=== PATIENT | male | born 1940 | race Caucasian/White ===

== ENCOUNTER 2024-06-23 09:06 | Outpatient (CLI) | payer MEDICARE, SELFPAY | END 2024-06-23 09:07 | disposition home or self-care (01) | PROVIDERS: Visit Provider Urology | DX: N13.30 Unspecified hydronephrosis (principal); K42.9 Umbilical hernia without obstruction or gangrene; K40.20 Bilateral inguinal hernia, without obstruction or gangrene, not specified as recurrent; K44.9 Diaphragmatic hernia without obstruction or gangrene; C61 Malignant neoplasm of prostate | CPT/HCPCS: 78815; A9596 ==

== ENCOUNTER 2024-07-10 08:36 | Outpatient (CLI) | payer MEDICARE, SELFPAY ==
--- NOTE | ~2024-07-10 | DEXA_ITS ---
Bone Density Report Name: POLO WOOTEN (JERRY) Age: 84 Sex: Male Ethnicity: White Date of : 1940 Indication: screening for osteoporosis; cancer; rheumatoid arthritis; Referring Provider: SARABJIT SORIA Study: Bone densitometry was performed. Exam Date: July 10, 2024 Accession number: [id number] Bone Density: Region BMD T-score Z-score Classification AP Spine(L2, L3, L4) 1.613 4.5 5.8 Normal Femoral Neck (Left) 0.974 0.3 1.9 Normal Total Hip (Left) 1.165 0.9 2.0 Normal Femoral Neck (Right) 0.917 -0.1 1.5 Normal Total Hip (Right) 1.138 0.7 1.8 Normal Femoral Neck Mean 0.945 0.1 1.7 Normal Total Hip Mean 1.151 0.8 1.9 Normal World Health Organization criteria for BMD impression classify patients as: Normal (T-score at or above -1.0), Osteopenia (T-score between -1.0 and -2.5), or Osteoporosis (T-score at or below -2.5). 10-year Fracture Risk: FRAX not reported because: All T-scores for Spine Total, Hip Total, Femoral Neck at or above -1.0 Clinical Information Provided by Patient: Has rheumatoid arthritis Has the following medical conditions: Cancer Patient maximum height was 74 Drinks caffeinated beverages Impression: The patient has normal bone mass. Discussion: BONE DENSITY IS ABOVE THE MINIMUM DESIRABLE LEVEL AT ALL SKELETAL SITES TESTED. This patient?s bone mineral density is above the minimum desirable level (T-score -1.0 or better) at all sites measured. The patient should follow a healthful lifestyle (good nutrition with adequate calcium and vitamin D, and appropriate weight-bearing exercise). Follow-Up: Consider repeating this study in 5 years or sooner if there is some new clinical indication. Reported by: HILARIO on 07/10/2024 9:03:00 AM. Reviewed, dictated and finalized at location A.
--- OUTSIDE RECORDS SUMMARY | 2024-07-10 09:00 | XMS_ITS | Patient Health Summary ---
Author Organization [facility] Address [address] [place] [address] Care Team Providers Care Associate Professor Of Kinesiology Name Role Phone Francisco Javier Avila MD Unavailable [phone] Note from [facility],non-owned Affiliates and Associated Physician Practices is amultiple site organization consisting of ambulatory clinics and hospital sitesin [place], [place], [place] and [place]. This disclosure is being madepursuant to the Care Everywhere program and may not contain all information available regarding this patient. Last updated 18.[facility] Allergies * Clindamycin(Rash) -Low Criticality Medications * Be aware that medications may not be up to date on this document. Alwaysverify current medications with the patient. * lisinopril (PRINIVIL; ZESTRIL) 40 MG tablet(Started 08/29/2010) Take 40 mg by mouth daily after breakfast. Instructed to take AM of surgery * lansoprazole (PREVACID) 30 MG capsule Take 30 mg by mouth daily before breakfast. Instructed to take AM of surgery * hydrochlorothiazide (HYDRODIURIL) 25 MG tablet Take 25 mg by mouth daily. * tamsulosin CR 24hr (FLOMAX) 0.4 MG capsule(Started 08/29/2010) Take 0.4 mg by mouth daily after breakfast. Take 30 minutes after a meal at the same time each day. * Lovastatin (ALTOPREV) 40 MG TB24(Started 08/29/2010) Take by mouth at bedtime. * cyclobenzaprine (FLEXERIL) 10 MG tablet(Started 08/29/2010) Take 10 mg by mouth as needed. * FINASTERIDE PO Take by mouth. 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6 F) 09/11/2010 5:48 AM CDT Respiratory Rate 18 09/11/2010 5:48 AM CDT Oxygen Saturation 96% 09/11/2010 5:48 AM CDT Inhaled Oxygen Concentration - - Weight 102.1 kg (225 lb) 09/08/2010 10:44 AM CDT Height 188 cm (6' 2 ) 09/08/2010 10:44 AM CDT Body Mass Index 28.89 09/08/2010 10:44 AM CDT Procedures * XR KNEE RIGHT 3VW(Performed 09/01/2011) Performed for Knee pain * CARDIAC EKG ORDER(Performed 09/12/2010) * LAB RESULTS ORDER(Performed 09/12/2010) * CARDIAC EKG ORDER(Performed 09/12/2010) * TROPONIN I(Performed 09/10/2010) * HGB HCT PANEL(Performed 09/10/2010) * TROPONIN I(Performed 09/09/2010) * HGB HCT PANEL(Performed 09/09/2010) Results * XR KNEE 3 VW RIGHT (09/01/2011 11:37 AM CDT) Anatomical Region Laterality Modality Lower Extremity Other Narrative 09/01/2011 11:37 AM CDT RT Kassi 09/01/2011 11:37 AM See progress notes for results Procedure Note Latrice Downs, RT - 09/01/2011 11:37 AM CDT See progress notes for results Francisco Javier Avila MD DIAGNOSTIC IMAGING O RDERABLES * LAB RESULTS ORDER (09/12/2010 2:03 PM CDT) Narrative Procedure Note Document, Scanned - 09/12/2010 2:03 PM CDT Scanned Document LAB - THERAPEUTIC DR GURWINDER MONITORING ORDERABLES * CARDIAC EKG ORDER (09/12/2010 2:03 PM CDT) Only the most recent of2 resultswithin the time period is included. Narrative Procedure Note Document, Scanned - 09/12/2010 2:03 PM CDT Scanned Document CARDIAC SERVICES ORD ERABLES * TROPONIN I (09/10/2010 4:30 AM CDT) Only the most recent of2 resultswithin the time period is included. [facility] Troponin I <0.10 SEE BELOW ng/ml [facility] Comment: Normal <0.10 [place] 0.10-0.99 Positive >=1.00 SERUM OR PLASMA SPECIMEN / Unknown 09/10/2010 4:30 AM CDT 09/10/2010 4:49 AM CDT Clyde Macias MD LAB - CHEMISTRY BRAYAN CHAO Performing Organization Address City/[facility] Co de Phone Number [facility] [address] [place] [address] * (ABNORMAL) HGB HCT PANEL (09/10/2010 4:30 AM CDT) Only the most recent of2 resultswithin the time period is included. [facility] Hemoglobin 12.3(L) 13.0 - 18.0 gm/dl [facility] Hematocrit 37.1(L) 39.0 - 54.0 % [facility] BLOOD SPECIMEN / Unknown 09/10/2010 4:30 AM CDT 09/10/2010 4:49 AM CDT Francisco Javier Avila MD LAB - HEMATOLOGY ORD ERABLES Performing Organization Address City/[facility] Co de Phone Number [facility] [address] [place] [address] Care Teams Associate Professor Of Kinesiology Relationship Specialty Start Date End Date Francisco Javier Avila MD Orthopedic Surgery 09/01/11
--- OUTSIDE RECORDS SUMMARY | 2024-07-10 09:00 | XMS_ITS | Clinical Summary ---
Author Organization [facility] Address [address] [place] [address] Care Team Providers Care Glue Wheel Operator Name Role Phone Francisco Javier Avila MD Unavailable [phone] Source Comments [facility],non-owned Affiliates and Associated Physician Practices is amultiple site organization consisting of ambulatory clinics and hospital sitesin [place], [place], [place] and [place]. This disclosure is being madepursuant to the Care Everywhere program and may not contain all information available regarding this patient. Last updated 18.[facility] Allergies Active Allergy Reactions Criticality Noted Date Comments Clindamycin Rash Low 08/29/2010 Medications * Be aware that medications may not be up to date on this document. Alwaysverify current medications with the patient. Medication Sig Dispensed Refills Start Date End Date Status lisinopril (PRINIVIL; ZESTRIL) 40 MG tablet Take 40 mg by mouth daily after breakfast. Instructed to take AM of surgery 08/29/2010 Active lansoprazole (PREVACID) 30 MG capsule Take 30 mg by mouth daily before breakfast. Instructed to take AM of surgery Active hydrochlorothiazide (HYDRODIURIL) 25 MG tablet Take 25 mg by mouth daily. Active tamsulosin CR 24hr (FLOMAX) 0.4 MG capsule Take 0.4 mg by mouth daily after breakfast. Take 30 minutes after a meal at the same time each day. 08/29/2010 Active Lovastatin (ALTOPREV) 40 MG TB24 Take by mouth at bedtime. 08/29/2010 Active cyclobenzaprine (FLEXERIL) 10 MG tablet Take 10 mg by mouth as needed. 08/29/2010 Active FINASTERIDE PO Take by mouth. 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 Immunizations Name Administration Dates Next Due PNEUMOCOCCAL PPSV23 02/23/2008 Social History Tobacco Use Types Packs/Day Years [...] Mass Index 28.89 09/08/2010 10:44 AM CDT Plan of Treatment Health Maintenance Due Date Last Done Comments MEDICARE AWV 12 MONTHS 1942 DTAP/TDAP/TD VACCINES (1 - Tdap) 1961 ZOSTER VACCINE (1 of 2) 1992 PNEUMOCOCCAL VACCINE 50+ (2 of 2 - PCV) 02/22/2009 02/23/2008 Respiratory Syncytial Virus (RSV) Vaccine Pt: or over 60 yrs (1 - 1-dose 75+ series) 2017 COVID-19 VACCINE ( - 2023-2 5 season) 2023 INFLUENZA VACCINE (#1) 2023 DEPRESSION SCREENING 04/26/2024 HEPATITIS B VACCINE Aged Out No longe r eligible based on patient's age to complete this topic HIB VACCINE Aged Out No longer eligi ble based on patient's age to complete this topic HPV VACCINE Aged Out No longer eligi ble based on patient's age to complete this topic MENINGOCOCCAL (Group B) VACC INE SHARED DECISION-MAKING Aged Out No longer eligibl e based on patient's age to complete this topic MENINGOCOCCAL GROUPS A/C/Y/W VACCINE Aged Out No longer eligible b ased on patient's age to complete this topic Advance Directives * Full Code (Latest Code Status on File) Date Activated Date Inactivated Comments 09/08/2010 10:43 AM 09/11/2010 11:44 PM Care Teams Glue Wheel Operator Relationship Specialty Start Date End Date Francisco Javier Avila MD Orthopedic Surgery 09/01/11
--- OUTSIDE RECORDS SUMMARY | 2024-07-10 09:00 | XMS_ITS | Encounter Summary ---
Author Organization [facility] Address [address] [place] [id number] Care Team Providers Care Barker Operator Name Role Phone Rodney Alvarez MD Primary Care Provider [phone] Encounter Details Date Type Department Care Team (Late st Contact Info) Description 10/01/2018 Abstract [facility] CONVERSION [address] [place] [address] , Generic ConversionMD Social History Tobacco Use Types Packs/Day Years Used Date Smoking Tobacco: Never Assessed Sex and Gender Information Value Date Recorded Sex Assigned at Male 05/24/2024 12:25 PM AMBULATORY SERVICES REPRESENTATIVE Legal Sex Male 5:48 PM AMBULATORY SERVICES REPRESENTATIVE Gender Identity Not on file Sexual Orientation Not on file documented as of this encounter Plan of Treatment Not on file documented as of this encounter Visit Diagnoses Not on filedocumented in this encounter Care Teams Barker Operator Relationship Specialty Start Date End Date Rodney Alvarez MD [address] [place] [address] PCP - General INTERNAL MEDICINE 04/11/24 documented as of this encounter
--- OUTSIDE RECORDS SUMMARY | 2024-07-10 09:00 | XMS_ITS | Clinical Summary ---
Author Organization [facility] Address Formerly [facility], [facility] [place] [address] Care Team Providers Care Associate Professor Computer Science Name Role Phone Rodney Alvarez MD Primary Care Provider [phone] Allergies No known active allergies Medications lisinopril (PRINIVIL) 20 MG tablet Take 1 tablet (20 mg total) by mouth 2 (two) times a day. 02/17/2024 Active tamsulosin (FLOMAX) 0.4 MG Cap Take 1 capsule (0.4 mg total) by mouth daily. 01/15/2024 Active pantoprazole EC (PROTONIX) 40 MG tablet Take 1 tablet (40 mg total) by mouth daily. 03/27/2024 Active finasteride (PROSCAR) 5 MG tablet Take 1 tablet (5 mg total) by mouth daily. 01/15/2024 Active hydroCHLOROthia zide (HYDRODIURIL) 25 MG tablet Take 1 tablet (25 mg total) by mouth daily. Active lovastatin (MEVACOR) 40 MG tablet Take 1 tablet (40 mg total) by mouth daily with supper. 02/01/2024 Active Active Problems No known active problems Encounters Date Type Department Care Team Description 05/31/2024 1:22 PM THERMODYNAMICS PROFESSOR Anesthesia [place] [address] Arturo Driver MD Jackson, Samantha Rae, FNP 05/31/2024 1:19 PM THERMODYNAMICS PROFESSOR - 05/31/2024 2:08 PM THERMODYNAMICS PROFESSOR [facility] [place] [address] Missael Soria MD TRANSRECTAL ULTRASOUND FUSION GUIDED PROSTATE BIOPSY 05/31/2024 10:48 AM THERMODYNAMICS PROFESSOR - 05/31/2024 11:59 PM THERMODYNAMICS PROFESSOR Hospital Encounter [facility] [address] Em Rivers FNP Discharge Disposition: Home or Self Care (Routine Discharge) 05/31/2024 10:48 AM THERMODYNAMICS PROFESSOR - 05/31/2024 3:33 PM THERMODYNAMICS PROFESSOR [facility] [address] Missael Soria MD Discharge Disposition: Home or Self Care (Routine Discharge) 05/31/2024 Travel 05/24/2024 Prep for [place] [address] Em Rivers FNP 05/23/2024 Travel 04/11/2024 3:22 PM THERMODYNAMICS PROFESSOR - 04/11/2024 11:59 PM THERMODYNAMICS PROFESSOR Hospital Encounter [facility] [place] [address] Rodney Alvarez MD Shands, Courtney III, MD Discharge Disposition: Home or Self Care (Routine Discharge) 04/11/2024 Orders Only [facility] [place] [address] Elsa Denise III, MD 04/11/2024 Travel from Last 3 Months Social History Tobacco Use Types Packs/Day Years Used Date Smoking Tobacco: Former Cigarettes 05 20 1 960 - 1984 Smokeless Tobacco: Never Comments:Former smoker off/o n for 25 years Alcohol Use Standard Drinks/Week Comments Yes 3.3 (1 standard drink = 0.6 oz p ure alcohol) Sex and Gender Information Value Date Recorded Sex Assigned at Male 05/24/2024 12:25 PM THERMODYNAMICS PROFESSOR Legal Sex Male 5:48 PM THERMODYNAMICS PROFESSOR Gender Identity Not on file Sexual Orientation Not on file Last Filed Vital Signs Vital Sign Reading Time Taken Comments Blood Pressure 192/106 05/31/2024 3:00 PM THERMODYNAMICS PROFESSOR Pulse 74 05/31/2024 3:00 PM THERMODYNAMICS PROFESSOR Temperature 36.1 C (97 F) 05/31/2024 3:00 PM THERMODYNAMICS PROFESSOR Respiratory Rate 18 05/31/2024 3:00 PM THERMODYNAMICS PROFESSOR Oxygen Saturation 100% 05/31/2024 3:00 PM THERMODYNAMICS PROFESSOR Inhaled Oxygen Concentration - - Weight 90 kg (198 lb 6.6 oz) 05/31/2024 11:15 AM THERMODYNAMICS PROFESSOR Height 188 cm (6' 2 ) 05/31/2024 11:15 AM THERMODYNAMICS PROFESSOR Body Mass Index 25.47 05/31/2024 11:15 AM THERMODYNAMICS PROFESSOR Plan of Treatment Health Maintenance Due Date Last Done Comments Annual Medicare Wellness Visit 2007 Pneumococcal Vaccine: 65+ Years (2 of 2 - PCV) 02/22/2009 02/23/2008 COVID-19 Vaccine ( season) 2023 02/20/2021, 06/18/2020, 05/28/2020 DTaP, Tdap and Td Vaccines (2 - Td or Tdap) 10/28/2026 10/28/2016 Zoster Vaccines Completed 06/27/2021, 12/09/2020 Influenza Adult Completed 02/16/2024, 01/24, 02/13/2020, Additional history exists RSV Immunization or 60+ Years Completed 02/16/2024 Meningococcal B Vaccine Aged Out No l onger eligible based on patient's age to complete this topic Meningococcal Vaccine Aged Out No ingrid jorge eligible based on patient's age to complete this topic RSV Immunizations Under 20 Months Aged Out No longer eligible based on patient's age to complete this topic Procedures Procedure Name Priority Date/Time Associated Diagnosis Comments US GUIDE NEEDLE PLCMT 05/31/2024 1:22 PM THERMODYNAMICS PROFESSOR PSA ELEVATION R97.20 Case Notes SCHED BY FAX ON 05/17/24 JDK PHONE ASSESS Special Needs [facility] # [id number] US TRANSRECTAL 05/31/2024 1:22 PM THERMODYNAMICS PROFESSOR PSA ELEVATION R97.20 Case Notes SCHED BY FAX ON 05/17/24 JDK PHONE ASSESS Special Needs [facility] # [id number] BIOPSY OF PROSTATE,NEEDLE/PU NCH 05/31/2024 1:22 PM THERMODYNAMICS PROFESSOR PSA ELEVATION R97.20 Case Notes SCHED BY FAX ON 05/17/24 [place]ES PHONE ASSESS Special Needs [facility] # [id number] BASIC METABOLIC PANEL STAT 05/31/2024 10:52 AM THERMODYNAMICS PROFESSOR Preop examination PATHOLOGY Routine 05/31/2024 12:00 AM THERMODYNAMICS PROFESSOR PROSTATE SPECIFIC ANTIGEN,TOTAL Routine 04/11/2024 3:29 PM THERMODYNAMICS PROFESSOR Elevated prostate specific antigen (PSA) from Last 3 Months Results * (ABNORMAL) BASIC METABOLIC PANEL (05/31/2024 10:52 AM THERMODYNAMICS PROFESSOR) GLUCOSE 94 70 - 99 MG/DL 05/31/2024 11:32 AM [facility] BUN 15 7 - 18 MG/DL 05/31/2024 11:32 AM [facility] CREATININE S/P/B 0.83 0.7 - 1.3 MG/DL 05/31/2024 11:32 AM [facility] SODIUM S/P/B 138 136 - 145 MMOL/L 05/31/2024 11:32 AM [facility] POTASSIUM S/P/B 3.8 3.5 - 5.1 MMOL/L 05/31/2024 11:32 AM [facility] CHLORIDE S/P/B 103 97 - 115 MMOL/L 05/31/2024 11:32 AM [facility] CO2 28.1 21 - 32 MMOL/L 05/31/2024 11:32 AM [facility] CALCIUM S/P/B 9.4 8.5 - 10.1 MG/DL 05/31/2024 11:32 AM [facility] ANION GAP 6.9 2 - 10 MMOL/L 05/31/2024 11:32 AM [facility] BUN CREATININE RATIO 18.0 6 - 26 05/31/2024 11:32 [address] [facility] GFR ESTIMATE 87(L) >90 ML/MIN/1.7 3 M2 05/31/2024 11:[address] [facility] Comment: NOTE: eGFR is not calculated for patients <18 years of age or gender unknown. This is an estimated GFR calculation using the new CKD EPI creatinine equation without race and so does not require a correction factor for race. This estimated GFR should not be used for calculating drug doses. 05/31/2024 10:5 2 AM THERMODYNAMICS PROFESSOR Em Rivers [facility] Final R esult [facility] [address] [place] [address], * Pathology (05/31/2024 12:00 AM THERMODYNAMICS PROFESSOR) PATHOLOGY [facility] Department of Laboratory Medicine [address] [place] [address] , extension [phone] Pathology Report Surgical Pathology Report Name: POLO DE ANDA Specimen #: [id number] Age: 12 1940 (Age: 84) Location: [facility] Sex: M Procedure Date: 05/31/2024 Hospital #: [id number] Date Received: 06/01/2024 Date Reported: 06/02/2024 Provider: MISSAEL SORIA MD Source: A: Prostate, right lateral base, needle biopsy B: Prostate, right medial base, needle biopsy C: Prostate, right lateral mid, needle biopsy D: Prostate, right medial mid, needle biopsy E: Prostate, right lateral apex, needle biopsy F: Prostate, right medial apex, needle biopsy G: Prostate, left lateral base, needle biopsy H: Prostate, left medial base, needle biopsy I: Prostate, left lateral mid, needle biopsy J: Prostate, left medial mid, needle biopsy K: Prostate, left lateral apex, needle biopsy L: Prostate, left medial apex, needle biopsy M: Prostate, MALINA #1, needle biopsy Clinical History: PSA elevation. FINAL DIAGNOSIS: A. Prostate, right lateral base, core biopsy: -Acinar adenocarcinoma, grade group 3 (Duluth score 4+3=7 with 60% pattern 4) involving 60% of a single core. B. Prostate, right medial base, core biopsy: -Acinar adenocarcinoma, grade group 3 (Héctor score 4+3=7 with 60% pattern 4) involving 90% of a single core. C. Prostate, right lateral mid, core biopsy: -Acinar adenocarcinoma, grade group 3 (Héctor score 4+3=7 with 90% pattern 4) involving 50% of a single core. D. Prostate, right medial mid, core biopsy: -Acinar adenocarcinoma, grade group 3 (Duluth score 4+3=7 with 60% pattern 4) involving 10% of a single core. E. Prostate, right lateral apex, core biopsy: -Acinar adenocarcinoma, grade group 4 (Duluth score 4+4=8), involving 5% of a single core. F. Prostate, right medial apex, core biopsy: -Acinar adenocarcinoma, grade group 3 (Héctor score 4+3=7 with 70% pattern 4) involving 30% of a single core. G. Prostate, left lateral base, core biopsy: -Acinar adenocarcinoma, grade group 3 (Héctor score 4+3=7 with 70% pattern 4) involving 90% of a single core. -Perineural invasion identified. -Foci suspicious for extraprostatic extension. H. Prostate, left medial base, core biopsy: -Acinar adenocarcinoma, grade group 3 (Duluth score 4+3=7 with 80% pattern 4) involving 100% of a single core. -Perineural invasion identified. -Foci suspicious for extraprostatic extension. I. Prostate, left lateral mid, core biopsy: -Acinar adenocarcinoma, grade group 3 (Héctor score 4+3=7 with 60% pattern 4) involving 80% of a single core. J. Prostate, left medial mid, core biopsy: -Acinar adenocarcinoma, grade group 2 (Héctor score 4+3=7 with 60% pattern 4) involving 80% of a single core. K. Prostate, left lateral apex, core biopsy: -Acinar adenocarcinoma, grade group 2 (Héctor score 3+4=7 with 30% pattern 4) involving 40% of a single core. -Perineural invasion identified. L. Prostate, left medial apex, core biopsy: -Acinar adenocarcinoma, grade group 2 (Héctor score 3+4=7 with 30% pattern 4) involving 80% of a single core. M. Prostate, region of interest #1, core biopsies: -Acinar adenocarcinoma, grade group 3 (Duluth score 4+3=7 with 60% pattern 4) involving 2 of 2 cores and 20% of total tissue submitted. Gross Description: A. Received in formalin, labeled with a patient label and as right lateral base is a less than 0.1 cm in diameter delicate white-bryant tissue core that has a length of 0.8 cm length. The specimen is entirely submitted in cassette A1. B. Received in formalin, labeled with a patient label and as right medial base is a less than 0.1 cm in diameter delicate white-bryant tissue core 0.8 cm in length. The specimen is entirely submitted in cassette B1. C. Received in formalin, labeled with a patient label and as right lateral mid is a less than 0.1 cm in diameter delicate white-bryant tissue core 1.3 cm in length. The specimen is entirely submitted in cassette C1. D. Received in formalin, labeled with a patient label and as right medial mid is a less than 0.1 cm in diameter delicate white-bryant tissue core 1.5 cm in length. The specimen is entirely submitted in cassette D1. E. Received in formalin, labeled with a patient label and as right lateral apex are 2 less than 0.1 cm in diameter delicate white-bryant tissue cores 0.5 and 0.7 cm in length. The specimen is entirely submitted in cassette E1. F. Received in formalin, labeled with a patient label and as right medial apex are 2 less than 0.1 cm in diameter delicate white-bryant tissue cores 0.2 and 1.3 cm in length. The specimen is entirely submitted in cassette F1. G. Received in formalin, labeled with a patient label and as left lateral base is a single less than 0.1 cm in diameter delicate white-bryant tissue core 1.3 cm in length. The specimen is entirely submitted in cassette G1. H. Received in formalin, labeled with a patient label and as left medial base is a single less than 0.1 cm in diameter delicate white-bryant tissue core 1.5 cm in length. The specimen is entirely submitted in cassette H1. I. Received in formalin, labeled with a patient label and as left lateral mid is a single less than 0.1 cm in diameter delicate white-bryant tissue core 1.2 cm in length. The specimen is entirely submitted in cassette I1. J. Received in formalin, labeled with a patient label and as left medial mid is a single less than 0.1 cm in diameter delicate white-bryant tissue core 1.5 cm in length. The specimen is entirely submitted in cassette J1. K. Received in formalin, labeled with a patient label and as left lateral apex is a single less than 0.1 cm in diameter delicate white-bryant tissue core 1.3 cm in length. The specimen is entirely submitted in cassette K1. L. Received in formalin, labeled with a patient label and as left medial apex is a single less than 0.1 cm in diameter delicate white-bryant tissue core 1.5 cm in length. The specimen is entirely submitted in cassette L1. M. Received in formalin, labeled with a patient label and as MALINA #1 are 2 less than 0.1 cm white-bryant tissue cores 1.2 and 1.5 cm in length. The specimen is entirely submitted in cassette M1. Gross examination (when applicable), interpretation, and sign out were performed at [facility], [address] [place] [address]. Electronically Signed Out JUAN PABLO AMADOR MD [facility] TISSUE PROSTATE / Unknown 12:56 PM THERMODYNAMICS PROFESSOR Tissue specimen (specimen) PROSTATE / Unknown 05/31/2024 12:56 PM THERMODYNAMICS PROFESSOR Tissue specimen (specimen) PROSTATE / Unknown 05/31/2024 12:56 PM THERMODYNAMICS PROFESSOR Tissue specimen (specimen) PROSTATE / Unknown 05/31/2024 12:56 PM THERMODYNAMICS PROFESSOR Tissue specimen (specimen) PROSTATE / Unknown 05/31/2024 12:56 PM THERMODYNAMICS PROFESSOR Tissue specimen (specimen) PROSTATE / Unknown 05/31/2024 12:56 PM THERMODYNAMICS PROFESSOR Tissue specimen (specimen) PROSTATE / Unknown 05/31/2024 12:56 PM THERMODYNAMICS PROFESSOR Tissue specimen (specimen) PROSTATE / Unknown 05/31/2024 12:56 PM THERMODYNAMICS PROFESSOR Tissue specimen (specimen) PROSTATE / Unknown 05/31/2024 12:56 PM THERMODYNAMICS PROFESSOR Tissue specimen (specimen) PROSTATE / Unknown 05/31/2024 12:56 PM THERMODYNAMICS PROFESSOR Tissue specimen (specimen) PROSTATE / Unknown 05/31/2024 12:56 PM THERMODYNAMICS PROFESSOR Tissue specimen (specimen) PROSTATE / Unknown 05/31/2024 12:56 PM THERMODYNAMICS PROFESSOR Tissue specimen (specimen) PROSTATE / Unknown 05/31/2024 12:56 PM THERMODYNAMICS PROFESSOR Missael Soria MD PATHOLOGY/CYTOLOGY ORDERABLES Fi nal Result [facility] [address] [place] [address], [place] [phone] * (ABNORMAL) PROSTATE SPECIFIC ANTIGEN, DIAG (04/11/2024 3:29 PM THERMODYNAMICS PROFESSOR) PSA 8.08(H) <4.00 NG/ML 04/11/2024 4:00 PM THERMODYNAMICS PROFESSOR [facility] Comment: ASSAY PERFORMED BY ENZYME IMMUNOASSAY METHODOLOGY USING SIEMENS DIMENSION REAGENT. PATIENT RESULTS DETERMINED BY ASSAYS FROM DIFFERENT MANUFACTURERS AND/OR BY DIFFERENT METHODS MAY NOT BE COMPARABLE. 04/11/2024 3:29 PM THERMODYNAMICS PROFESSOR Elsa Denise III, MD LABORATORY Final Re sult Performing Organization Address [facility] Co de Phone Number [facility] [address] [place] [address], [place] [phone] from Last 3 Months Insurance [employer] Care Teams Associate Professor Computer Science Relationship Specialty Start Date End Date Rodney Alvarez MD [address] [place] [address] PCP - General INTERNAL MEDICINE 04/11/24
--- OUTSIDE RECORDS SUMMARY | 2024-07-10 09:00 | XMS_ITS | Referral Summary ---
Author Organization [facility] Address [address] [place] [address] Care Team Providers Care Tube Building Machine Operator Name Role Phone Francisco Javier Avila MD Unavailable [phone] Source Comments [facility],non-owned Affiliates and Associated Physician Practices is amultiple site organization consisting of ambulatory clinics and hospital sitesin [place], [place], [place] and [place]. This disclosure is being madepursuant to the Care Everywhere program and may not contain all information available regarding this patient. Last updated 18.[facility] Globial Allergies Active Allergy Reactions Criticality Noted Date [...] 09/08/2010 10:44 AM CDT Plan of Treatment Not on file Advance Directives * Full Code (Latest Code Status on File) Date Activated Date Inactivated Comments 09/08/2010 10:43 AM 09/11/2010 11:44 PM Care Teams Tube Building Machine Operator Relationship Specialty Start Date End Date Francisco Javier Avila MD Orthopedic Surgery 09/01/11
== END 2024-07-10 08:37 | disposition home or self-care (01) ==
LOC: CHSIMG 08:38
PROVIDERS: PCP Internal Medicine; Visit Provider Urology
DX: M81.0 Age-related osteoporosis without current pathological fracture (principal)
CPT/HCPCS: 77080

== ENCOUNTER 2025-01-08 08:55 | Outpatient (CLI) | payer MEDICARE, SELFPAY ==
[2025-01-08 09:21] LABS: Hematocrit 39.9 % (37.0-46.0); Hemoglobin 13.1 g/dL (12.4-15.3); Mean Corpuscular HGB Conc 32.8 g/dL (32-36); Mean Corpuscular Hemoglobin 31.0 pg (27.0-31.0); Mean Corpuscular Volume 94.5 fL (78.0-102.0); Platelet Count Result 206 K/mm3 (150-420); Red Blood Count 4.22 M/mm3 (4.70-6.10); White Blood Count 5.2 K/mm3 (4.8-10.8)
--- OUTSIDE RECORDS SUMMARY | 2025-01-08 09:36 | XMS_ITS | Clinical Summary ---
Author Organization [facility] Address [address] [place] [address] Care Team Providers Care Assistant Professor Of Biochemistry Name Role Phone Francisco Javier Avila MD Unavailable [phone] Source Comments [facility],non-owned Affiliates and Associated Physician Practices is amultiple site organization consisting of ambulatory clinics and hospital sitesin [place], [place], [place] and [place]. This disclosure is being madepursuant to the Care Everywhere program and may not contain all information available regarding this patient. Last updated 18.[facility] Allergies Active Allergy Reactions Criticality Noted Date Comments Clindamycin Rash Low 08/29/2010 Medications * Be aware that medications may not be up to date on this document. Alwaysverify current medications with the patient. lisinopril (PRINIVIL; ZESTRIL) 40 MG tablet Take 40 mg by mouth daily after breakfast. Instructed to take AM of surgery 1 Active lansoprazole (PREVACID) 30 MG capsule Take 30 mg by mouth daily before breakfast. Instructed to take AM of surgery Active hydrochlorothia zide (HYDRODIURIL) 25 MG tablet Take 25 mg by mouth daily. Active tamsulosin CR 24hr (FLOMAX) 0.4 MG capsule Take 0.4 mg by mouth daily after breakfast. Take 30 minutes after a meal at the same time each day. 1 Active Lovastatin (ALTOPREV) 40 MG TB24 Take by mouth at bedtime. 1 Active cyclobenzaprine (FLEXERIL) 10 MG tablet Take 10 mg by mouth as needed. 1 Active FINASTERIDE PO Take by mouth. 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 Gender Identity Not on file Sexual Orientation [...] 10:44 AM CDT Height 188 cm (6' 2) 09/08/2010 10:44 AM CDT Body Mass Index 28.89 09/08/2010 10:44 AM CDT Plan of Treatment Health Maintenance Due Date Last Done Comments DTAP/TDAP/TD VACCINES (1 - Tdap) 1961 ZOSTER VACCINE (1 of 2) 1992 PNEUMOCOCCAL VACCINE 50+ (2 of 2 - PCV) 02/22/2009 02/23/2008 Respiratory Syncytial Virus (RSV) Vaccine Pt: or over 60 yrs (1 - 1-dose 75+ series) 2017 DEPRESSION SCREENING 04/26/2024 COVID-19 VACCINE (1 - 2023-2 5 season) 2024 INFLUENZA VACCINE (#1) 2024 HEPATITIS B VACCINE Aged Out No longe [...] on patient's age to complete this topic [facility] Advance Directives * Full Code (Latest Code Status on File) Date Activated Date Inactivated Comments 09/08/2010 10:43 AM 09/11/2010 11:44 PM Care Teams Assistant Professor Of Biochemistry Relationship Specialty Start Date End Date Francisco Javier Avila MD Orthopedic Surgery 09/01/11
[2025-01-08 09:42] LABS: Alanine Aminotransferase 20 U/L (6-50); Albumin Level 4.2 g/dL (3.5-5.1); Alkaline Phosphatase 49 U/L (38-126); Anion Gap 7 mmol/L (4-12); Aspartate Amino Transferase 25 U/L (17-59); Bilirubin,Total 0.5 mg/dL (0.2-1.3); Blood Urea Nitrogen 25 mg/dL (9-20); Calcium 10.2 mg/dL (8.4-10.2); Carbon Dioxide 29 mmol/L (22-30); Chloride 105 mmol/L (98-107); Cholesterol 199 mg/dL (0-200); Estimated Glomerular Filt Rate > 60; Glucose 102 mg/dL (65-110); HDL Direct 85 mg/dL; Osmolality Calculated 296 mOsm/kg (285-295); Potassium 4.3 mmol/L (3.4-5.0); Sodium 141 mmol/L (137-145); Total Protein 6.6 g/dL (6.3-8.2); Triglycerides 80 mg/dL (<150)
[2025-01-08 10:14] LABS: Prostate Specific Antigen 0.2 ng/mL (< OR = 4.0); Thyroid Stimulating Hormone 3.260 uIU/mL (0.465-4.680)
== END 2025-01-08 08:56 | disposition home or self-care (01) ==
LOC: CHSLAB 08:57
PROVIDERS: PCP Internal Medicine; Visit Provider Nurse Practitioner
DX: I10 Essential (primary) hypertension (principal); E78.5 Hyperlipidemia, unspecified; C61 Malignant neoplasm of prostate
CPT/HCPCS: 36415; 80053; 80061; 84153; 84443; 85027

== ENCOUNTER 2025-04-24 08:48 | Outpatient (CLI) | payer MEDICARE, SELFPAY ==
--- OUTSIDE RECORDS SUMMARY | 2025-04-24 09:02 | XMS_ITS | Encounter Summary ---
Author Organization [facility] Address [address] [place] [address] Care Team Providers Care Insurance Special Agent Name Role Phone Rodney Alvarez MD Primary Care Provider [phone] Encounter Details Date Type Department Care Team (Late st Contact Info) Description 10/01/2018 Abstract [facility] CONVERSION [address] [place] [address] , Generic ConversionMD Social History Tobacco Use Types Packs/Day Years Used Date Smoking Tobacco: Never Assessed Sex and Gender Information Value Date Recorded Sex Assigned at Male 05/24/2024 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
--- OUTSIDE RECORDS SUMMARY | 2025-04-24 09:02 | XMS_ITS | Clinical Summary ---
Author Organization [facility] Address [facility] [place] [address] Care Team Providers Care Solid Propellant Processor Name Role Phone Rodney Alvarez MD Primary Care Provider Allergies No known active allergies Medications lisinopril [...] Active Active Problems No known active problems Social History Tobacco Use Types Packs/Day Years Used Date Smoking Tobacco: Former Cigarettes 960 - 1984 Smokeless Tobacco: Never Comments:Former smoker off/o n for 25 years Alcohol Use Standard Drinks/Week Comments Yes 3.3 (1 standard drink = 0.6 oz p ure alcohol) Sex and Gender Information Value Date Recorded Sex Assigned at Male 05/24/2024 12:25 PM GENETIC TECHNOLOGIST Legal Sex Male 5:48 PM GENETIC TECHNOLOGIST Gender Identity Not on file Sexual Orientation Not on file Last Filed Vital Signs Vital Sign Reading Time Taken Comments Blood Pressure 192/106 05/31/2024 3:00 PM GENETIC TECHNOLOGIST Pulse 74 05/31/2024 3:00 PM GENETIC TECHNOLOGIST Temperature 36.1 C (97 F) 05/31/2024 3:00 PM GENETIC TECHNOLOGIST Respiratory Rate 18 05/31/2024 3:00 PM GENETIC TECHNOLOGIST Oxygen Saturation 100% 05/31/2024 3:00 PM GENETIC TECHNOLOGIST Inhaled Oxygen Concentration - - Weight 90 kg (198 lb 6.6 oz) 05/31/2024 11:15 AM GENETIC TECHNOLOGIST Height 188 cm (6' 2) 05/31/2024 11:15 AM GENETIC TECHNOLOGIST Body Mass Index 25.47 05/31/2024 11:15 AM GENETIC TECHNOLOGIST Plan of Treatment Health Maintenance Due Date Last Done Comments Annual Medicare Wellness Visit 2007 Pneumococcal Vaccine: 50+ Years (2 of 2 - PCV) 02/22/2009 02/23/2008 COVID-19 Vaccine ( season) 2024 02/20/2021, 06/18/2020, 05/28/2020 Influenza Adult (#1) 2025 02/16/2024, 02/11/2023, 02/13/2020, Additional history exists DTaP, Tdap and Td Vaccines (2 - Td or Tdap) 10/28/2026 10/28/2016 Zoster Vaccines Completed 06/27/2021, 12/09/2020 RSV Immunization or 60+ Years Completed 02/16/2024 Hepatitis A Vaccines Aged Out No long er eligible based on patient's age to complete this topic Meningococcal B Vaccine Aged Out No l onger eligible based on patient's age to complete this topic Meningococcal Vaccine Aged Out No ingrid jorge eligible based on patient's age to complete this topic RSV Immunizations Under 20 Months Aged Out No longer eligible based on patient's age to complete this topic Insurance [employer] MEDICARE Care Teams Solid Propellant Processor Relationship Specialty Start Date End Date Rodney Alvarez MD [address] [place] [address] PCP - General INTERNAL MEDICINE 04/11/24
--- OUTSIDE RECORDS SUMMARY | 2025-04-24 09:02 | XMS_ITS | Clinical Summary ---
Author Organization [facility] [employer] Address [address] [place] [address] Care Team Providers Care Rail Gang Supervisor Name Role Phone Francisco Javier Avila MD Unavailable [phone] Source Comments [facility],non-owned Affiliates and Associated Physician Practices is amultiple site organization consisting of ambulatory clinics and hospital sitesin [place], [place], [place] and [place]. This disclosure is being madepursuant to the Care Everywhere program and may not contain all information available regarding this patient. 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
[2025-04-24 09:56] LABS: Anion Gap 9 mmol/L (4-12); Blood Urea Nitrogen 28 mg/dL (9-20); Calcium 10.2 mg/dL (8.4-10.2); Carbon Dioxide 26 mmol/L (22-30); Chloride 107 mmol/L (98-107); Estimated Glomerular Filt Rate > 60; Glucose 106 mg/dL (65-110); Osmolality Calculated 299 mOsm/kg (285-295); Potassium 4.5 mmol/L (3.4-5.0); Sodium 142 mmol/L (137-145)
[2025-04-24 10:28] LABS: Prostate Specific Antigen < 0.1 ng/mL (< OR = 4.0)
[2025-04-29 00:07] LABS: Testosterone, Total, LC/MS 17 ng/dL (.)
== END 2025-04-24 08:49 | disposition home or self-care (01) ==
PROVIDERS: PCP Internal Medicine; Visit Provider Nurse Practitioner
DX: C61 Malignant neoplasm of prostate (principal)
CPT/HCPCS: 36415; 80048; 84153; 84403